=== PATIENT | male | born 1945 | race Caucasian/White ===

== ENCOUNTER → 2017-09-17 | Outpatient (CLI) | payer MEDICARE ==
[~2017-09-17] MED LIST: ADVAI250I PO; ASPI81TA82 PO; ATOR40TA49 PO; CLON.2 PO; HYDR50TA15 PO; LABE200; LABE300T PO; MONT10TA2 PO; OMEP20TA39 PO; POLY10O EACH EYE; SYNT137T PO; TIOT1AER2
--- NOTE | 2017-09-23 11:42 | RSPPFT ---
DATE OF PROCEDURE: 09/17/17 COMMENTS: VOLUMES DYNAMIC: FVC mildly reduced; FEV1 moderately reduced. STATIC: RV mildly increased; FRC and TLC normal. FLOWS: FEV1% moderately reduced; FEF 25-75 severely reduced. DIFFUSION: Normal. FLOW VOLUME LOOP: Pattern of variable intrathoracic airways obstruction. IMPRESSION: Moderately severe obstructive ventilatory defect with no reduction in diffusion and mild hyperinflation. There is significant improvement post-bronchodilator.
== END ==
LOC: HRSP 09:14
PROVIDERS: ATTEND Internal Medicine
DX: J45.909 Unspecified asthma, uncomplicated (principal); R06.02 Shortness of breath
CPT/HCPCS: 94060; 94620; 94726; 94729